=== PATIENT | male | born 1970 | race African-American/Black ===

== ENCOUNTER 2019-10-06 17:11 | Inpatient (IN) | payer OTHER ==
[2019-10-06 18:07] VITALS: BMI 32.8
--- NOTE | 2019-10-06 20:25 | HP ---
COWS - Scale Resting Pulse: 0= HI 80 or Below Sweatin= Chills/Flushing Restless Observation: 0= Sits Still Pupil Size: 0= Normal to Room Light Bone or Joint Aches: 4=Acute Joint/Muscle Pain Runny Nose/ Eye Tearin= None GI Upset > 30mins: 2= Nausea/Diarrhea Tremor Observation: 0= None Yawning Observation: 1= 1-2x During Session Anxiety or Irritability: 1=Feels Anxious/Irritable Goose Flesh Skin: 0=Smooth Skin COWS Score: 9 CIWA Score - Admission Criteria [facility]ASAS Guidelines: Admission for Medically Managed Detox: Requires at least one of the followin. CIWA greater than 12 2. Seizures within the past 24 hours 3. Delirium tremens within the past 24 hours 4. Hallucinations within the past 24 hours 5. Acute intervention needed for co occurring medical disorder 6. Acute intervention needed for co occurring psychiatric disorder 7. Severe withdrawal that cannot be handled at a lower level of care (continued vomiting, continued diarrhea, abnormal vital signs) requiring intravenous medication and/or fluids 8. Admitting History and Physical - Smoking History Smoking history: Current every day smoker Have you smoked in the past 12 months: Yes Aproximately how many cigarettes per day: 10 Admission ROS [facility] Chief Complaint: SEEKING DETOX FROM HEROIN Allergies/Adverse Reactions: Allergies Allergy/AdvReac Type Severity Reaction Status Date / Time No Known Allergies Allergy Verified 10/06/19 17:51 History of Present Illness: 49 Y.O. AA MALE HERE FOR DETOX. 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 THIS IS HIS FIRST ADMISSION HERE. HE ADMITS TO PREVIOUS DETOX TXMENT BUT STATES "ITS BEEN A WHILE". PRESENTS WITH C/O WITHDRAWAL SX'S. COWS IS 9. HIS DRUG OF CHOICE IS HEROIN AND COCAINE. HE REPORTS LAST USING HEROIN 1 DAY AGO. REPORTS SNIFFING 14 BAGS DAILY SINCE THE AGE OF 17. DENIES IVDA, +DRUG OVERDOSE X 2. LAST BEING summer. +BLACKOUTS ARE REPORTED WELL. DENIES ANY SIGNIFICANT PERIOD OF CLEAN TIME. [place] HE IS HOMELESS, UNEMPLOYED ON [place] Exam Limitations: No Limitations - Ebola screening Have you traveled outside of the country in the last 21 days: No (N) Have you had contact with anyone from an Ebola affected area: No Do you have a fever: No - Review of Systems Constitutional: Chills, Loss of Appetite, Changes in sleep EENT: reports: Blurred Vision (CORRECTIVE LENSES), Dental Problems (MISSING TEETH/ DENTURES TOP DOES NOT HAVE ON HIME NOW) Respiratory: reports: Shortness of Breath (HX/O ASTHMA) Cardiac: reports: No Symptoms Reported GI: reports: Diarrhea, Nausea : reports: No Symptoms Reported Musculoskeletal: reports: Back Pain, Joint Pain Integumentary: reports: No Symptoms Reported Neuro: reports: Dizziness, Other (BLACKOUTS) Endocrine: reports: No Symptoms Reported Hematology: reports: No Symptoms Reported Psychiatric: reports: Orientated x3, Agitated (IRRITABLE), Anxious Other Systems: Reviewed and Negative Patient History - Patient Medical History Hx Anemia: No Hx Asthma: Yes Hx Chronic Obstructive Pulmonary Disease (COPD): No Hx Cancer: No Hx Cardiac Disorders: No Hx Congestive Heart Failure: No Hx Hypertension: No Hx Hypercholesterolemia: No Hx Pacemaker: No HX Cerebrovascular Accident: No Hx Seizures: No Hx Dementia: No Hx Diabetes: No Hx Gastrointestinal Disorders: No Hx Liver Disease: No Hx Genitourinary Disorders: No Hx Sexually Transmitted Disorders: No Hx Renal Disease (ESRD): No Hx Thyroid Disease: No Hx Human Immunodeficiency Virus (HIV): No Hx Hepatitis C: No Hx Depression: Yes Hx Suicide Attempt: No Hx Bipolar Disorder: No Hx Schizophrenia: Yes Other Medical History: ANXIETY - Patient Surgical History Past Surgical History: No Hx Neurologic Surgery: No Hx Cataract Extraction: No Hx Cardiac Surgery: No Hx Lung Surgery: No Hx Breast Surgery: No Hx Breast Biopsy: No Hx Abdominal Surgery: No Hx Appendectomy: No Hx Cholecystectomy: No Hx Genitourinary Surgery: No Hx Section: No Hx Orthopedic Surgery: No Anesthesia Reaction: No - PPD History Previous Implant?: Yes Documented Results: Positive w/o proof Implanted On Prior [facility] Admission?: No PPD to be Administered?: No - Smoking Cessation Smoking history: Current every day smoker Have you smoked in the past 12 months: Yes Aproximately how many cigarettes per day: 10 Cigars Per Day: 0 Hx Chewing Tobacco Use: No Initiated information on smoking cessation: Yes 'Breaking Loose' booklet given: 10/06/19 - Substance & Tx. History Hx Alcohol Use: No Hx Substance Use: Yes Substance Use Type: Cocaine, Heroin Hx Substance Use Treatment: Yes (JUDA[facility] TIAGO) - Substances abused Cocaine Substance route: Smoking Frequency: Daily Amount used: 2gm Age of first use: 24 Date of last use: 10/05/19 Heroin Substance route: Inhalation Frequency: Daily Amount used: 14 Age of first use: 17 Date of last use: 10/04/19 Admission Physical Exam [facility] - Vital Signs Vital Signs: Vital Signs - 24 hr 10/06/19 17:51 Temperature 97.5 F L Pulse Rate 65 Respiratory 20 Rate Blood Pressure 110/67 - Physical General Appearance: Yes: Mild Distress, Irritable, Anxious HEENTM: Yes: EOMI, Normocephalic, Normal Voice, ELIZABETH, Pharynx Normal, Other ( TOP DENTURES) Respiratory: Yes: Chest Non-Tender, Lungs Clear, Normal Breath Sounds, No Respiratory Distress, No Accessory Muscle Use Neck: Yes: No masses,lesions,Nodules, Supple, Trachea in good position Breast: Yes: Breast Exam Deferred Cardiology: Yes: Regular Rhythm, Regular Rate, S1, S2 Abdominal: Yes: Normal Bowel Sounds, Non Tender, Soft, Protuberent Genitourinary: Yes: Within Normal Limits Back: Yes: Normal Inspection Musculoskeletal: Yes: full range of Motion, Gait Steady, Joint Stiffness (C/O) Extremities: Yes: Normal Capillary Refill, Normal Range of Motion, Non-Tender Neurological: Yes: Fully Oriented, Alert, Motor Strength 5/5 Integumentary: Yes: Dry, Warm Lymphatic: Yes: Within Normal Limits - Diagnostic (1) Opioid dependence with withdrawal Current Visit: Yes Status: Acute (2) Cocaine dependence, uncomplicated Current Visit: Yes Status: Acute (3) Nicotine dependence Current Visit: Yes Status: Chronic Qualifiers: Nicotine product type: cigarettes Substance use status: uncomplicated Qualified Code(s): F17.210 - Nicotine dependence, cigarettes, uncomplicated (4) Asthma Current Visit: Yes Status: Chronic Qualifiers: Asthma severity: mild Asthma persistence: intermittent Asthma complication type: uncomplicated Qualified Code(s): J45.20 - Mild intermittent asthma, uncomplicated (5) Psychiatric disorder Current Visit: Yes Status: Suspected Comment: ANXIETY, DEPRESSION, SCHIZOPHRENIA WITH HX/O VOICES (6) Substance induced mood disorder Current Visit: Yes Status: Suspected (7) Living in homeless alf Current Visit: Yes Status: Acute Comment: REPORTED Cleared for Admission [facility] - Detox or Rehab [facility] Level of Care: Medically Managed Detox Regimen/Protocol: Methadone Claeared for Rehab Admission: No Breathalyzer - Breathalyzer Breathalyzer: 0 Urine Drug Screen - Test Device Lot number: [id number] Expiration date: 05/26/21 - Control Is test valid?: Yes - Results Drug screen NEGATIVE: No Urine drug screen results: CK-Cocaine, FEN-Fentanyl, MOP-Opiates Inpatient Rehab Admission - Rehab Decision to Admit Inpatient rehab admission?: No
[2019-10-06] MEDS ORDERED: MENTHOL/PHENOL 1 EACH UD MM PRN (20:29)
[2019-10-06] MEDS ORDERED: ACETAMINOPHEN 325 MG TABLET (FP) PO PRN ×2 (20:29)
[2019-10-06] MEDS ORDERED: DICYCLOMINE HCL 10 MG CAPSULE PO PRN (20:29)
[2019-10-06] MEDS ORDERED: hydrOXYzine PAMOATE 25 MG CAPSULE (FP) PO PRN (20:29)
[2019-10-06] MEDS ORDERED: BISMUTH SUBSALICYLATE 524 MG/30 ML UD PO PRN (20:29)
[2019-10-06] MEDS ORDERED: MAGNESIUM HYDROX 2400MG/30ML ORAL SUSPENSION 30 ML CUP PO PRN (20:29)
[2019-10-06] MEDS ORDERED: NALOXONE HCL 0.4 MG/ML VIAL IM PRN (20:29)
[2019-10-06] MEDS ORDERED: guaiFENesin 200 MG/10 ML 10 ML UNIT-DOSE CUPS PO PRN (20:29)
[2019-10-06] MEDS ORDERED: P-EPHED 60MG/TRIPROLIDI 2.5MG TABLET PO PRN (20:29)
[2019-10-06] MEDS ORDERED: NICOTINE POLACRILEX 2 MG GUM BUC PRN (20:29)
[2019-10-06] MEDS ORDERED: MAG HYDROX/AL HYDROX/SIMETH 30 ML UNIT-DOSE CUP PO PRN (20:29)
[2019-10-06] MEDS ORDERED: ONDANSETRON *ODT* 4 MG TABLET SL PRN (20:29)
[2019-10-06] MEDS ORDERED: IBUPROFEN 400 MG TABLET (FP) PO PRN (20:29)
[2019-10-06] MEDS ORDERED: MAGNESIUM CITRATE 300 ML BOTTLE PO PRN (20:29)
[2019-10-06] MEDS ORDERED: MELATONIN 5 MG TABLETS PO PRN (20:29)
[2019-10-06] MEDS ORDERED: ALBUTEROL SO4 8 GM HFA INHALER IH SCH (20:45)
[2019-10-06] MEDS ORDERED: METHADONE HCL 10 MG TABLET (FOR DETOX USE ONLY) PO ONE (21:45)
[2019-10-06] MEDS: THIAMINE HCL 100 MG TABLET (FP) PO SCH (21:54)
[2019-10-06] MEDS: METHOCARBAMOL 500 MG TABLET PO PRN (21:54)
[2019-10-07] MEDS ORDERED: METHADONE HCL 10 MG TABLET (FOR DETOX USE ONLY) ONE (08:51)
[2019-10-07] MEDS ORDERED: METHADONE HCL 5 MG TABLET (FOR DETOX USE ONLY) ONE (08:51)
[2019-10-07] MEDS ORDERED: METHADONE (DETOX) 20 MG, METHADONE (DETOX) 5 MG PO ONE (10:00)
[2019-10-07] MEDS: PRENATAL VITAMINS W/ FOLIC ACID TABLET (FP) PO SCH (10:21)
[2019-10-07] MEDS: NICOTINE 14 MG/24 HOURS TOPICAL PATCH TD SCH (10:21)
[2019-10-07] MEDS: cloNIDine HCL 0.1 MG TABLET PO PRN ×2 (10:22→21:03)
--- NOTE | 2019-10-07 10:42 | EKG ---
Test Reason : Blood Pressure : / mmHG Vent. Rate : 065 BPM Atrial Rate : 065 BPM P-R Int : 110 ms QRS Dur : 080 ms QT Int : 380 ms P-R-T Axes : 066 056 028 degrees QTc Int : 395 ms SINUS RHYTHM WITH SINUS ARRHYTHMIA WITH SHORT OK WITH OCCASIONAL PREMATURE VENTRICULAR COMPLEXES OTHERWISE NORMAL ECG NO PREVIOUS ECGS AVAILABLE Confirmed by SHIRIN BALTAZAR MD ([id number]) on 10/07/2019 10:41:55 AM Referred By: Rene Weiner Confirmed By:SHIRIN BALTAZAR MD
--- NOTE | 2019-10-07 11:27 | PN ---
[facility] COWS - Scale Resting Pulse: 0= [place] 80 or Below Sweatin= Chills/Flushing Restless Observation: 1= Difficult to Sit Still Pupil Size: 0= Normal to Room Light Bone or Joint Aches: 1= Mild Discomfort Runny Nose/ Eye Tearin= Runny Nose/Eyes GI Upset > 30mins: 0= None Tremor Observation of Outstretched Hands: 2= Slight Tremor Visible Yawning Observation: 2= >3x During Session Anxiety or Irritability: 2=Irritable/Anxious Goose Flesh Skin: 0=Smooth Skin COWS Score: 11 S Progress Note (SOAP) Subjective: sweats nasal congestions body aches muscle cramping shakes interrupted sleep irritable Objective: 10/07/19 11:27 Vital Signs Temperature 98.4 F 10/07/19 09:32 Pulse Rate 65 10/07/19 09:32 Respiratory Rate 20 10/07/19 09:32 Blood Pressure 110/68 10/07/19 09:32 O2 Sat by Pulse Oximetry (%) labs pending aaox3 ambulating no acute distress Assessment: 10/07/19 11:27 withdrawal sx Plan: continue detox increase fluids
[2019-10-07 11:49] LABS: HEMOGLOBIN 12.4 GM/dL (11.7-16.9); MCH 29.5 pg (25.7-33.7); MCHC 32.5 g/dl (32.0-35.9); MEAN CELL VOLUME 90.5 fl (80-96); MEAN PLT VOLUME 10.1 fl (7.5-11.1); PLATELET COUNT 173 K/MM3 (134-434); RBC 4.19 M/mm3 (4.00-5.60); RDW 14.4 % (11.9-15.9); WHITE BLOOD COUNT 5.5 K/mm3 (4.0-10.0)
[2019-10-07 12:06] LABS: ALBUMIN 3.3 g/dl (3.4-5.0); BILIRUBIN,TOTAL 0.2 mg/dL (0.2-1); BLOOD UREA NITROGEN 11.1 mg/dL (7-18); CALCIUM 8.5 mg/dL (8.5-10.1); CREATININE 1.1 mg/dL (0.55-1.3); POTASSIUM 3.9 mmol/L (3.5-5.1)
[2019-10-07] MEDS ORDERED: ALBUTEROL SO4 8 GM HFA INHALER IH PRN (13:58)
--- NOTE | 2019-10-07 14:19 | CONSULT ---
[facility] Psychiatric Consult - Data Date of interview: 10/07/19 Psychiatric History: Patient approached multiple times at bedside. He told radio news writer:" I'm tired. I don't want to talk now". Please reconsult when patient is more appropriae for interview"
--- NOTE | 2019-10-07 15:41 | PN ---
S Progress Note Note: pt was scheduled for chest x-ray this afternoon d/t h/o of +PPD however, pt is refusing to go. pt re-scheduled for saturday. Pt was advised that he will need to go on saturday to make sure there is any need for treatment if there is something on the chest x-ray.
[2019-10-07] MEDS: METHOCARBAMOL 500 MG TABLET PO PRN ×2 (16:32→22:42)
[2019-10-07] MEDS: THIAMINE HCL 100 MG TABLET (FP) PO SCH (22:41)
[2019-10-08] MEDS ORDERED: METHADONE HCL 10 MG TABLET (FOR DETOX USE ONLY) PO ONE (10:00)
[2019-10-08] MEDS: NICOTINE 14 MG/24 HOURS TOPICAL PATCH TD SCH (10:24)
[2019-10-08] MEDS: PRENATAL VITAMINS W/ FOLIC ACID TABLET (FP) PO SCH (10:24)
--- NOTE | 2019-10-08 10:29 | PN ---
[facility] COWS - Scale Resting Pulse: 0= [place] 80 or Below Sweatin= Chills/Flushing Restless Observation: 0= Sits Still Pupil Size: 0= Normal to Room Light Bone or Joint Aches: 1= Mild Discomfort Runny Nose/ Eye Tearin= Runny Nose/Eyes GI Upset > 30mins: 0= None Tremor Observation of Outstretched Hands: 1= Tremor [place], Not Seen Yawning Observation: 2= >3x During Session Anxiety or Irritability: 2=Irritable/Anxious Goose Flesh Skin: 0=Smooth Skin COWS Score: 9 BHS Progress Note (SOAP) Subjective: sweats irritable agitation body aches Objective: 10/08/19 10:28 Vital Signs Temperature 98.2 F 10/08/19 09:42 Pulse Rate 58 L 10/08/19 09:42 Respiratory Rate 20 10/08/19 09:42 Blood Pressure 129/80 10/08/19 09:42 O2 Sat by Pulse Oximetry (%) Laboratory Tests 10/07/19 10/07/19 10/07/19 08:00 08:00 08:00 WBC 5.5 RBC 4.19 Hgb 12.4 Hct 38.0 MCV 90.5 MCH 29.5 MCHC 32.5 RDW 14.4 Plt Count 173 MPV 10.1 Sodium 141 Potassium 3.9 Chloride 106 Carbon Dioxide 31 Anion Gap 4 L BUN 11.1 Creatinine 1.1 Est GFR (CKD-EPI)AfAm 90.24 Est GFR (CKD-EPI)NonAf 77.86 Random Glucose 112 H Calcium 8.5 Total Bilirubin 0.2 AST 42 H ALT 63 H Alkaline Phosphatase 86 Total Protein 6.0 L Albumin 3.3 L RPR Titer Nonreactive labs noted aaox3 ambulating no acute distress Assessment: 10/08/19 10:29 withdrawals Plan: continue detox increase fluids
--- NOTE | 2019-10-08 14:46 | EKG ---
Test Reason : Blood Pressure : / mmHG Vent. Rate : 053 BPM Atrial Rate : 053 BPM P-R Int : 116 ms QRS Dur : 088 ms QT Int : 388 ms P-R-T Axes : 070 053 003 degrees QTc Int : 364 ms SINUS BRADYCARDIA WITH SINUS ARRHYTHMIA NONSPECIFIC T WAVE ABNORMALITY ABNORMAL ECG WHEN COMPARED WITH ECG OF 06-OCT-2019 21:41, PREMATURE VENTRICULAR COMPLEXES ARE NO LONGER PRESENT Confirmed by JAYA SANABRIA, DOUG ([id number]) on 10/08/2019 2:46:28 PM Referred By: Rene Weiner Confirmed By:DOUG LAKE MD
[2019-10-08] MEDS: THIAMINE HCL 100 MG TABLET (FP) PO SCH (22:09)
[2019-10-08] MEDS: METHOCARBAMOL 500 MG TABLET PO PRN (22:09)
[2019-10-09] MEDS ORDERED: METHADONE HCL 10 MG TABLET (FOR DETOX USE ONLY) ONE (08:53)
[2019-10-09] MEDS ORDERED: METHADONE HCL 5 MG TABLET (FOR DETOX USE ONLY) ONE (08:53)
[2019-10-09] MEDS ORDERED: METHADONE (DETOX) 10 MG, METHADONE (DETOX) 5 MG PO ONE (10:00)
[2019-10-09] MEDS: PRENATAL VITAMINS W/ FOLIC ACID TABLET (FP) PO SCH (10:10)
[2019-10-09] MEDS: NICOTINE 14 MG/24 HOURS TOPICAL PATCH TD SCH (10:11)
[2019-10-09 10:34] VITALS: BP 125/66; PULSE 67; TEMP 98.8
--- NOTE | 2019-10-09 12:29 | DS ---
S Detox Discharge Summary Admission Date: 10/06/19 - History Present History: Cocaine Dependence, Opioid Dependence - Physical Exam Results Vital Signs: Vital Signs Temperature 98.8 F 10/09/19 10:33 Pulse Rate 67 10/09/19 10:33 Respiratory Rate 20 10/09/19 10:33 Blood Pressure 125/66 10/09/19 10:33 O2 Sat by Pulse Oximetry (%) Pertinent Admission Physical Exam Findings: Vital Signs Temperature 98.8 F 10/09/19 10:33 Pulse Rate 67 10/09/19 10:33 Respiratory Rate 20 10/09/19 10:33 Blood Pressure 125/66 10/09/19 10:33 O2 Sat by Pulse Oximetry (%) Laboratory Tests 10/07/19 10/07/19 10/07/19 08:00 08:00 08:00 WBC 5.5 RBC 4.19 Hgb 12.4 Hct 38.0 MCV 90.5 MCH 29.5 MCHC 32.5 RDW 14.4 Plt Count 173 MPV 10.1 Sodium 141 Potassium 3.9 Chloride 106 Carbon Dioxide 31 Anion Gap 4 L BUN 11.1 Creatinine 1.1 Est GFR (CKD-EPI)AfAm 90.24 Est GFR (CKD-EPI)NonAf 77.86 Random Glucose 112 H Calcium 8.5 Total Bilirubin 0.2 AST 42 H ALT 63 H Alkaline Phosphatase 86 Total Protein 6.0 L Albumin 3.3 L RPR Titer Nonreactive pt chose to sign out AMA. - Treatment Hospital Course: Rehab Referral Accepted - Medication Discharge Medications: Ambulatory Orders Albuterol Sulfate Inhaler - [Ventolin Hfa Inhaler -] 2 inh PO Q6H 10/06/19 Mirtazapine [Remeron -] 30 mg PO HS 10/06/19 - AMA Did Patient Leave Against Medical Advice: Yes
--- NOTE | 2019-10-09 12:29 | PN ---
S Progress Note Note: pt states he wants to leave. pt did not want to stay to complete detox pt was advised that by staying he can prevent relapse, seizure, Dt, OD and or loss however, pt chose to sign out AMA.
[2019-10-10] MEDS ORDERED: METHADONE HCL 10 MG TABLET (FOR DETOX USE ONLY) PO ONE (10:00)
[2019-10-11] MEDS ORDERED: METHADONE HCL 5 MG TABLET (FOR DETOX USE ONLY) PO ONE (06:00)
== END 2019-10-09 12:09 | disposition left against medical advice (07) | DRG 770 ==
LOC: YASAS 17:11 → Y6N 20:54
PROVIDERS: ADMIT Allergy & Immunology; ATTEND Allergy & Immunology
PROC: HZ2ZZZZ Detoxification Services for Substance Abuse Treatment (ICD-10-PCS; principal; 2019-10-06)
DX: F11.23 Opioid dependence with withdrawal (principal); F14.20 Cocaine dependence, uncomplicated; F17.210 Nicotine dependence, cigarettes, uncomplicated; F19.24 Other psychoactive substance dependence with psychoactive substance-induced mood disorder; F99 Mental disorder, not otherwise specified; J45.20 Mild intermittent asthma, uncomplicated; R76.11 Nonspecific reaction to tuberculin skin test without active tuberculosis; Z59.0 Homelessness
CPT/HCPCS: 36415; 71046-TC-FY; 80053; 85027; 86593; 93005; 93010; J0735; Q0162